=== PATIENT | male | born 1960 | race Caucasian/White ===

== ENCOUNTER 2020-04-18 23:48 | Inpatient (IN) | payer SELFPAY ==
[~2020-04-18] VITALS: Ht 157.5 cm; Wt 77.1 kg
[2020-04-19] MEDS ORDERED: MORPHINE SULFATE 4 MG/ML CPJ (NOT FOR IM USE) IV STA (00:04)
[2020-04-19] MEDS ORDERED: ONDANSETRON HCL 4MG/2ML INJ IV STA (00:04)
[2020-04-19] MEDS ORDERED: SODIUM CHLORIDE 0.9% 1,000 ML IV ONE (00:15)
[2020-04-19] MEDS ORDERED: HYDROMORPHONE HCL/PF 2MG/ML CPJ IV ONE (00:15)
[2020-04-19 01:08] LABS: BASOPHILS % 0.3 % (0.0-2.0); EOSINOPHILS % 0.7 % (0.0-5.0); HEMATOCRIT. 48.7 % (42.0-52.0); HEMOGLOBIN. 16.8 g/dL (14.0-18.0); LYMPHOCYTES % 22.3 % (20.0-50.0); MEAN CORPUSCULAR HEMOGLOBIN 29.6 pg (28.0-32.0); MEAN CORPUSCULAR VOLUME 85.9 fL (80.0-94.0); MEAN PLATELET VOLUME 8.4 fl (7.4-10.4); MONOCYTES % 6.6 % (2.0-8.0); NEUTROPHILS % 70.1 % (40.0-76.0); PLATELET 245 x1000/uL (130-400); RED BLOOD CELL COUNT 5.67 mill/uL (4.7-6.1)
[2020-04-19 01:14] LABS: CHLORIDE 103 mEq/L (98-107)
[2020-04-19 01:19] LABS: ETHANOL BLOOD < 10 mg/dL
[2020-04-19] MEDS ORDERED: VANCOMYCIN 1 G PREMIX 200 ML IV NR (01:30)
[2020-04-19] MEDS ORDERED: PIPERACILLIN/TAZOBACTAM 3.375GM/50ML PREMIX IV ONE (01:30)
[2020-04-19] MEDS ORDERED: SODIUM CHLORIDE 0.9% 1000ML BAG (SEPSIS BOLUS) IV ONE (01:30)
[2020-04-19] MEDS ORDERED: PIPERACILLIN/TAZ 3.375G PREMIX 50 ML IV NR (02:00)
[2020-04-19] MEDS ORDERED: IOHEXOL-350 100 ML BOTTLE ONE (02:37)
[2020-04-19 03:32] LABS: CLARITY URINE CLEAR (CLEAR); COLOR URINE DARK YELLOW (YELLOW); KETONES URINE 1+ (NEGATIVE); LEUKOCYTE ESTERASE URINE NEGATIVE (NEGATIVE); NITRITE URINE NEGATIVE (NEGATIVE); OCCULT BLOOD URINE NEGATIVE (NEGATIVE); PROTEIN URINE NEGATIVE (NEGATIVE); SPECIFIC GRAVITY URINE 1.058 (1.005-1.030); UROBILINOGEN URINE 0.2 E.U./dL (0.2-1.0)
[2020-04-19 03:47] LABS: *BENZODIAZEPINES SCREEN URINE NEGATIVE (NEGATIVE); *COCAINE SCREEN URINE NEGATIVE (NEGATIVE); METHADONE URINE SCREEN NEGATIVE (NEGATIVE); OPIATES URINE SCREEN PRESUMTIVE POSITIVE (NEGATIVE); PHENCYCLIDINE URINE SCREEN NEGATIVE (NEGATIVE)
[2020-04-19 03:48] LABS: *AMPHETAMINES SCREEN URINE NEGATIVE (NEGATIVE); *BARBITURATES SCREEN URINE NEGATIVE (NEGATIVE); CANNABINOID URINE SCREEN NEGATIVE (NEGATIVE)
[2020-04-19] MEDS ORDERED: PIPERACILLIN/TAZ 3.375G PREMIX 50 ML IV SCH (08:00)
[2020-04-19] MEDS ORDERED: CLONIDINE 0.1MG TABLET PO PRN (08:15)
[2020-04-19] MEDS ORDERED: DIPHENHYDRAMINE 50MG/ML VIAL IV PRN (08:15)
[2020-04-19] MEDS ORDERED: ONDANSETRON HCL 4MG/2ML INJ IV PRN (08:15)
[2020-04-19] MEDS ORDERED: VANCOMYCIN 1 G PREMIX 200 ML IV SCH (09:00)
[2020-04-19 09:25] VITALS: BP 162/94
[2020-04-19] MEDS: MORPHINE SULFATE 2 MG/ML CPJ (NOT FOR IM USE) IV PRN ×2 (09:47→22:52)
[2020-04-19] MEDS: SODIUM CHLORIDE 0.9% 1,000 ML IV SCH ×2 (10:20→20:13)
[2020-04-19] MEDS ORDERED: POTASSIUM CHLORIDE 20MEQ TABLET SR PO SCH (12:00)
[2020-04-19] MEDS: PIPERACILLIN/TAZOBACTAM 3.375 G in DEXT 5% WATER 100 ML IV SCH ×2 (12:56→18:11)
[2020-04-19] MEDS: VANCOMYCIN 1 G PREMIX 200 ML IV SCH ×2 (13:02→20:13)
[2020-04-19] MEDS ORDERED: BISACODYL 10MG SUPP PR PRN (18:30)
[2020-04-19 20:00] VITALS: BP 129/88
[2020-04-19] MEDS ORDERED: SORBITOL 70% SOLN 30ML PO NR (20:00)
[2020-04-19] MEDS: OMEPRAZOLE 20MG CAPSULE EXTENDED RELEASE PO SCH (20:13)
[2020-04-20] MEDS: PIPERACILLIN/TAZOBACTAM 3.375 G in DEXT 5% WATER 100 ML IV SCH ×3 (03:35→18:40)
[2020-04-20 04:00] VITALS: BP 130/88
[2020-04-20] MEDS: OMEPRAZOLE 20MG CAPSULE EXTENDED RELEASE PO SCH ×2 (06:24→21:10)
[2020-04-20 06:50] LABS: BASOPHILS % 0.3 % (0.0-2.0); HEMATOCRIT. 48.2 % (42.0-52.0); HEMOGLOBIN. 16.4 g/dL (14.0-18.0); LYMPHOCYTES % 7.5 % (20.0-50.0); MEAN CORPUSCULAR HEMOGLOBIN 29.6 pg (28.0-32.0); MEAN PLATELET VOLUME 8.5 fl (7.4-10.4); MONOCYTES % 7.4 % (2.0-8.0); NEUTROPHILS % 84.8 % (40.0-76.0); PLATELET 186 x1000/uL (130-400); RED BLOOD CELL COUNT 5.54 mill/uL (4.7-6.1); RED CELL DISTRIBUTION WIDTH 13.4 % (11.6-14.6)
[2020-04-20 06:54] LABS: CHLORIDE 106 mEq/L (98-107)
[2020-04-20 07:18] LABS: AMYLASE 623 IU/L (25-115); HEPATITIS B SURFACE ANTIGEN NEGATIVE
[2020-04-20 07:19] LABS: LDL CHOLESTEROL 84 mg/dL (5-100)
[2020-04-20 07:22] LABS: HDL CHOLESTEROL 42 mg/dL (40-59)
[2020-04-20 07:48] LABS: HEPATITIS A AB IGM NEGATIVE (NEGATIVE)
[2020-04-20 08:00] VITALS: BP 131/89
[2020-04-20] MEDS ORDERED: LACTULOSE 20G/30ML UDC PO PRN (10:30)
[2020-04-20] MEDS: VANCOMYCIN 1 G PREMIX 200 ML IV SCH ×2 (11:00→19:32)
[2020-04-20] MEDS: SODIUM CHLORIDE 0.9% 1,000 ML IV SCH ×2 (11:05→21:11)
[2020-04-20 20:00] VITALS: BP 133/91
[2020-04-20] MEDS ORDERED: DEXTROSE 50% WATER 50ML SYRINGE IV PRN (20:45)
[2020-04-20] MEDS: BLOOD SUGAR DIAGNOSTIC STRIP TEST SCH (21:10)
[2020-04-20] MEDS: INSULIN LISPRO 100 UNITS/ML SUBCUT SCH (21:11)
[2020-04-20] MEDS: ACETAMINOPHEN 325MG TABLET PO PRN (22:50)
[2020-04-21 00:41] VITALS: BP 116/71
[2020-04-21] MEDS: PIPERACILLIN/TAZOBACTAM 3.375 G in DEXT 5% WATER 100 ML IV SCH ×3 (03:38→21:14)
[2020-04-21] MEDS: VANCOMYCIN 1 G PREMIX 200 ML IV SCH ×3 (03:38→16:10)
[2020-04-21 04:00] VITALS: BP 141/94
[2020-04-21 06:42] LABS: CHLORIDE 105 mEq/L (98-107)
[2020-04-21] MEDS: MORPHINE SULFATE 2 MG/ML CPJ (NOT FOR IM USE) IV PRN (06:44)
[2020-04-21] MEDS: OMEPRAZOLE 20MG CAPSULE EXTENDED RELEASE PO SCH ×2 (06:44→21:14)
[2020-04-21] MEDS: INSULIN LISPRO 100 UNITS/ML SUBCUT SCH ×4 (06:48→21:19)
[2020-04-21] MEDS: BLOOD SUGAR DIAGNOSTIC STRIP TEST SCH ×4 (06:48→21:14)
[2020-04-21 06:49] LABS: AMYLASE 270 IU/L (25-115)
[2020-04-21 06:51] LABS: BASOPHILS % 0.2 % (0.0-2.0); HEMATOCRIT. 42.6 % (42.0-52.0); HEMOGLOBIN. 14.8 g/dL (14.0-18.0); LYMPHOCYTES % 7.4 % (20.0-50.0); MEAN CORPUSCULAR HEMOGLOBIN 29.9 pg (28.0-32.0); MEAN CORPUSCULAR VOLUME 86.2 fL (80.0-94.0); MEAN PLATELET VOLUME 8.5 fl (7.4-10.4); MONOCYTES % 7.6 % (2.0-8.0); NEUTROPHILS % 84.8 % (40.0-76.0); PLATELET 157 x1000/uL (130-400); RED BLOOD CELL COUNT 4.94 mill/uL (4.7-6.1); RED CELL DISTRIBUTION WIDTH 13.1 % (11.6-14.6)
[2020-04-21 08:00] VITALS: BP 155/91
[2020-04-21 12:00] VITALS: BP 155/88
[2020-04-21] MEDS: SODIUM CHLORIDE 0.9% 1,000 ML IV SCH (14:06)
[2020-04-21 16:00] VITALS: BP 138/87
[2020-04-21] MEDS: ACETAMINOPHEN 325MG TABLET PO PRN (17:18)
[2020-04-21 20:00] VITALS: BP 138/69
[2020-04-22] VITALS: BP 131/75
[2020-04-22] MEDS: VANCOMYCIN 1 G PREMIX 200 ML IV SCH (02:22)
[2020-04-22] MEDS: PIPERACILLIN/TAZOBACTAM 3.375 G in DEXT 5% WATER 100 ML IV SCH ×2 (02:22→14:15)
[2020-04-22] MEDS: SODIUM CHLORIDE 0.9% 1,000 ML IV SCH ×2 (02:22→17:08)
[2020-04-22 04:00] VITALS: BP 157/96
[2020-04-22] MEDS: OMEPRAZOLE 20MG CAPSULE EXTENDED RELEASE PO SCH ×2 (06:30→22:00)
[2020-04-22] MEDS: BLOOD SUGAR DIAGNOSTIC STRIP TEST SCH ×4 (06:31→21:00)
[2020-04-22] MEDS: INSULIN LISPRO 100 UNITS/ML SUBCUT SCH ×4 (07:15→21:00)
[2020-04-22 08:00] VITALS: BP 140/87
[2020-04-22 08:25] LABS: BASOPHILS % 0.2 % (0.0-2.0); EOSINOPHILS % 0.2 % (0.0-5.0); HEMATOCRIT. 37.7 % (42.0-52.0); HEMOGLOBIN. 13.2 g/dL (14.0-18.0); LYMPHOCYTES % 9.1 % (20.0-50.0); MEAN CORPUSCULAR HEMOGLOBIN 29.9 pg (28.0-32.0); MEAN CORPUSCULAR VOLUME 85.2 fL (80.0-94.0); MEAN PLATELET VOLUME 8.4 fl (7.4-10.4); MONOCYTES % 7.9 % (2.0-8.0); NEUTROPHILS % 82.6 % (40.0-76.0); PLATELET 163 x1000/uL (130-400); RED BLOOD CELL COUNT 4.42 mill/uL (4.7-6.1); RED CELL DISTRIBUTION WIDTH 13.2 % (11.6-14.6)
[2020-04-22 08:47] LABS: CHLORIDE 104 mEq/L (98-107)
[2020-04-22] MEDS ORDERED: VANCOMYCIN 1250MG in DEXTROSE 5% WATER 250ML IV SCH (11:30)
[2020-04-22 12:00] VITALS: BP 141/89
[2020-04-22 16:00] VITALS: BP 144/90
[2020-04-22] MEDS ORDERED: POTASSIUM CHLORIDE 20MEQ TABLET SR PO NR (16:00)
[2020-04-22 20:00] VITALS: BP 135/90
[2020-04-23] VITALS: BP 146/87
[2020-04-23 04:00] VITALS: BP 140/88
[2020-04-23] MEDS: OMEPRAZOLE 20MG CAPSULE EXTENDED RELEASE PO SCH (06:49)
[2020-04-23] MEDS: BLOOD SUGAR DIAGNOSTIC STRIP TEST SCH ×2 (06:49→11:45)
[2020-04-23] MEDS: INSULIN LISPRO 100 UNITS/ML SUBCUT SCH ×2 (06:49→12:15)
[2020-04-23] MEDS: SODIUM CHLORIDE 0.9% 1,000 ML IV SCH (06:50)
[2020-04-23 08:00] VITALS: BP 133/91
[2020-04-23] MEDS ORDERED: OMEP20CA14 MT (11:40)
[2020-04-23] MEDS ORDERED: POLYETHYLENE GLYCOL 3350 (17GM) 1 DOSE PACK PO NR (11:45)
[2020-04-23] MEDS ORDERED: POLYETHYLENE GLYCOL 3350 (17GM) 1 DOSE PACK PO PRN (11:45)
[2020-04-23] MEDS ORDERED: METOCLOPRAMIDE HCL 10MG/2ML VIAL IV SCH (12:00)
[2020-04-23 14:30] VITALS: BP 132/89
== END 2020-04-23 16:40 | disposition home or self-care (01) | DRG 282 ==
LOC: ER 23:48 → 7WST 04-19 02:20 → ENRESERV 04-19 07:56 → 5WST 04-20 01:10
PROVIDERS: ADMIT Internal Medicine; ATTEND Internal Medicine
DX: K85.90 Acute pancreatitis without necrosis or infection, unspecified (principal); E87.6 Hypokalemia; I10 Essential (primary) hypertension; K76.0 Fatty (change of) liver, not elsewhere classified; K80.20 Calculus of gallbladder without cholecystitis without obstruction; Z20.822 Contact with and (suspected) exposure to COVID-19; K40.20 Bilateral inguinal hernia, without obstruction or gangrene, not specified as recurrent
CPT/HCPCS: 36415; 71045; 71275; 74174; 74181; 76700; 80048; 80053; 80061; 80076; 80202; 80305; 80320; 81003; 82140; 82150; 82248; 82728; 82962; 83605; 84145; 85025; 85379; 86140; 86705; 86709; 86803; 86850; 86900; 87340; 87426; 93005; 93970; 99291; J1170; J1815; J2270; J2405; J2543; J2765; J3370; J7030; J7060; Q9967; U0003; G0480